=== PATIENT | male | born 2000 | race Asian ===

== ENCOUNTER 2022-02-04 11:15 | Emergency (ER) | payer OTHER ==
[~2022-02-04] VITALS: Ht 188 cm; Wt 68.0 kg
[2022-02-04 11:18] VITALS: BP 119/63; TEMP 98.7
[2022-02-04] MEDS ORDERED: CEPH500C20 PO (11:39)
== END 2022-02-04 11:44 | disposition home or self-care (01) ==
LOC: ED 11:15
DX: S91.331A Puncture wound without foreign body, right foot, initial encounter (principal); W45.0XXA Nail entering through skin, initial encounter; Y92.89 Other specified places as the place of occurrence of the external cause
CPT/HCPCS: 90471; 90715; 99282